=== PATIENT | female | born 2000 ===

== ENCOUNTER 2018-06-11 08:41 | Emergency (ER) | payer SELFPAY ==
--- NOTE | 2018-06-11 10:00 | ED PDOC ---
HPI: Eye Injury/Pain Time Seen by Provider: 06/11/18 09:34 Chief Complaint (Provider): Eye pain History Per: Patient History/Exam Limitations: no limitations Onset/Duration Of Symptoms: Days (yesterday) Additional Complaint(s): Pt. with R eye redness and pain. No itching. No dc. States she has pink eye. No numbness, tingles, vision changes, weakness, dizziness, injury. No headaches. No cough, fever. No dyspnea. Unclear where she got it from. States she wears contact lenses. Past Medical History Reviewed: Nursing Documentation, Vital Signs Vital Signs: Last Vital Signs Temp 98.5 F 06/11/18 08:58 Pulse 71 06/11/18 08:58 Resp 19 06/11/18 08:58 BP 113/76 06/11/18 08:58 Pulse Ox 97 06/11/18 08:58 - Medical History PMH: No Chronic Diseases - Surgical History Surgical History: No Surg Hx - Family History Family History: States: Unknown Family Hx - Home Medications Home Medications: Ambulatory Orders Medication Instructions Recorded Polymyxin/Trimethoprim Sulfate 2 drop OD Q6H 7 Days bottle 06/11/18 [Polytrim Ophth Soln] - Allergies Allergies/Adverse Reactions: Allergies Allergy/AdvReac Type Severity Reaction Status Date / Time Unobtainable Allergy Verified 06/11/18 09:36 Review of Systems Constitutional: Negative for: Fever, Weakness Eyes: Positive for: Pain, Redness. Negative for: Vision Change, Eyelid Inflammation ENT: Negative for: Ear Discharge, Nose Pain, Nose Discharge Cardiovascular: Negative for: Chest Pain Respiratory: Negative for: Cough, Shortness of Breath Musculoskeletal: Negative for: Neck Pain Skin: Negative for: Rash Neurological: Negative for: Weakness Physical Exam - Reviewed Nursing Documentation Reviewed: Yes Vital Signs Reviewed: Yes - Physical Exam Appears: Positive for: Non-toxic Head Exam: Positive for: ATRAUMATIC, NORMAL INSPECTION, NORMOCEPHALIC Skin: Positive for: Normal Color, Warm, DRY Eye Exam: Positive for: EOMI, PERRL, Other (conjunctiva with pink hue; no fluorescein uptake R eye). Negative for: Periorbital swelling, Periorbital tenderness ENT: Positive for: Normal ENT Inspection Neck: Positive for: Normal, Painless ROM, Supple Cardiovascular/Chest: Positive for: Regular Rate, Rhythm Respiratory: Positive for: Normal Breath Sounds Neurologic/Psych: Positive for: Alert, community development technician II-XII, Oriented. Negative for: Motor/Sensory Deficits, Aphasia, Facial Droop - ECG O2 Sat by Pulse Oximetry: 97 - Progress ED Course And Treament: 1032: Stable. AAOx3. Tolerated PO. Fu with pcp. Visual acuity not completed as pt. tried but not cooperative. Did not have her contacts or glasses. Disposition - Clinical Impression Clinical Impression: Conjunctivitis Counseled Patient/Family Regarding: Studies Performed, Diagnosis, Need For Followup, Rx Given - Disposition Referrals: [facility] [place] [Outside] - 06/12/18 Disposition: Routine/Home Disposition Time: 10:00 Condition: STABLE Additional Instructions: Return if not better in 3 days. Prescriptions: Polymyxin/Trimethoprim Sulfate [Polytrim Ophth Soln] 2 drop OD Q6H 7 Days nomil e Instructions: Conjunctivitis ([place]) Forms: [facility] ED School/Work Excuse
[2018-06-11] MEDS ORDERED: PROPARACAINE/FLUORESCEIN SOD 100 DROP/5 ML BOTTLE OD STA (10:06)
[2018-06-11] MEDS ORDERED: PROPARACAINE/FLUORESCEIN SOD 100 DROP/5 ML BOTTLE ONE (10:10)
[2018-06-11 10:55] VITALS: BP 113/76; PULSE 71; RESP 19; TEMP 98.5; O2SAT 97
== END 2018-06-11 10:45 | disposition home or self-care (01) ==
LOC: H.ER 08:41
DX: H10.9 Unspecified conjunctivitis (principal)